=== PATIENT | male | born 1975 | race Caucasian/White ===

== ENCOUNTER 2019-03-21 15:07 | Emergency (ER) | payer OTHER ==
[~2019-03-21] VITALS: Ht 180.3 cm; Wt 81.8 kg
--- NOTE | 2019-03-21 18:43 | Diagnostic Imaging Report ---
Exam: Right ring finger radiographs-3 views Clinical History: Rule out fracture of the fourth distal finger. Comparison: None. Findings/Impression: No evidence of acute fracture or dislocation. Mild soft tissue edema in the ring finger with flexion at the DIP joint. Signed by: Dr. Vikas Wagner MD on 03/21/2019 6:41 PM
== END 2019-03-21 18:20 | disposition home or self-care (01) ==
LOC: ER 15:07
DX: M20.011 Mallet finger of right finger(s) (principal); X50.9XXA Other and unspecified overexertion or strenuous movements or postures, initial encounter; Y99.0 Civilian activity done for income or pay
CPT/HCPCS: 99282